=== PATIENT | female | born 2000 | race Caucasian/White ===

== ENCOUNTER 2019-01-01 19:57 | Emergency (ER) | payer OTHER ==
[2019-01-01] MEDS ORDERED: FAMOTIDINE 20 MG/2 ML SDV IVP ONE (20:48)
[2019-01-01] MEDS ORDERED: methylPREDNISolone SOD SUCC 125 MG/2 ML VIAL IVP ONE (20:48)
--- NOTE | 2019-01-01 20:51 | EDPHY ---
H & P Stated Complaint: allergic rxn Time Seen by Provider: 01/01/19 20:39 HPI/ROS: Chief Complaint: Allergic reaction HPI: 18-year-old girl with a history of recurrent sinusitis, status post surgery in August. Patient has had sinusitis symptoms for the last several days. She has seen by her ENT this morning. He started her on doxycycline and prednisone. The patient took the 1st dose of doxycycline a 7:00 a.m. This evening. Within 15 min she does started developing swelling in her face, redness and hives in her chest and some fullness in her throat. She took 75 mg of Benadryl. She is now feeling significantly improved but continues to have some fullness sensation in her throat. Does not have a history of taken doxycycline in the past. Does have a remote history of Omnicef allergy. No fevers or chills. No cough. No nausea or vomiting. No lightheadedness or fainting. ROS: 10 systems were reviewed and were negative except those elements noted in the HPI. PMH: Recurrent sinusitis Social History: No smoking, no alcohol, no recreational drug use Family History: non-contributory Physical Exam: Gen: Awake, Alert, No Distress HEENT: Nose: no rhinorrhea Eyes: PERRLA, EOMI Mouth: Moist mucosa Neck: Supple, no JVD Chest: nontender, lungs clear to auscultation Heart: S1, S2 normal, no murmur Abd: Soft, non-tender, no guarding Back: no CVA tenderness, no midline tenderness Ext: no edema, non-tender Skin: no rash Neuro: CN II-XII intact, Sensation grossly intact, Strength 5/5 in bilateral upper and lower extremities - Personal History Current Tetanus/Diphtheria Vaccine: Yes Current Tetanus Diphtheria and Acellular Pertussis (TDAP): Yes - Medical/Surgical History Hx Asthma: Yes Hx Chronic Respiratory Disease: No Hx Diabetes: No Hx Cardiac Disease: No Hx Renal Disease: No Hx Cirrhosis: No Hx Alcoholism: No Hx HIV/AIDS: No Hx Splenectomy or Spleen Trauma: No - Social History Smoking Status: Never smoked Constitutional: Initial Vital Signs Temperature (C) 36.7 C 01/01/19 20:03 Heart Rate 77 01/01/19 20:03 Respiratory Rate 16 01/01/19 20:03 Blood Pressure 147/92 H 01/01/19 20:03 O2 Sat (%) 99 01/01/19 20:03 O2 Delivery Mode Room Air Allergies/Adverse Reactions: cefdinir [From Omnicef] Allergy (Verified 01/01/19 20:00) Medical Decision Making ED Course/Re-evaluation: Patient is improved. No rash, no itching, no throat swelling. Plan will be for discharge. She has already been get written a prescription for prednisone by her ENT which she will continue. She can take Benadryl. Return for any concerns. - Data Points Medications Given: Discontinued Medications Famotidine (Pepcid) 20 mg IVP EDNOW ONE Stop: 01/01/19 20:49 Last Admin: 01/01/19 20:59 Dose: 20 mg Methylprednisolone Sodium Succinate (Solu-Medrol) 125 mg IVP EDNOW ONE Stop: 01/01/19 20:49 Last Admin: 01/01/19 20:59 Dose: 125 mg Departure - Departure Disposition: Home, Routine, Self-Care Clinical Impression: Allergic reaction Condition: Good Instructions: General Allergic Reaction (ED) Additional Instructions: Continue taking her medications as prescribed except for the doxycycline. May take Benadryl 50 mg every 4-6 hours. Follow up with her Ear Nose and Throat doctor in 2-3 days for further evaluation. Referrals: Terra Anguiano MD [Primary Care Provider] - As per Instructions
[2019-01-01 21:56] VITALS: BP 109/78
== END 2019-01-01 22:13 | disposition home or self-care (01) ==
DX: T78.40XA Allergy, unspecified, initial encounter (principal)
CPT/HCPCS: 96374; J2930